=== PATIENT | female | born 1945 | race African-American/Black ===

== ENCOUNTER 2021-12-17 08:38 | Inpatient (IN) | payer MEDICARE, MEDICAID ==
[~2021-12-17] VITALS: Ht 172.7 cm; Wt 103.4 kg
[2021-12-17] MEDS ORDERED: METHYLPREDNISOLONE SOD SUCC 125 MG/2 ML VIAL IV STA (09:10)
[2021-12-17] MEDS ORDERED: IPRATROPIUM BROMIDE (0.02%) 0.5MG/2.5ML NEB HHN STA (09:10)
[2021-12-17] MEDS ORDERED: MAGNESIUM 2 G PREMIX 50 ML IV ONE ×2 (09:15→10:30)
[2021-12-17] MEDS: ALBUTEROL (0.083%) 2.5MG/3ML NEB HHN SCH ×2 (09:53→11:54)
[2021-12-17] MEDS ORDERED: DOCUSATE SODIUM 100MG CAPSULE PO PRN (10:30)
[2021-12-17] MEDS ORDERED: ACETAMINOPHEN 325MG TABLET PO PRN ×2 (10:30)
[2021-12-17] MEDS ORDERED: IPRATROPIUM/ALBUTEROL 0.5-3(2.5)MG/3ML NEB HHN PRN (10:30)
[2021-12-17] MEDS ORDERED: MAGNESIUM/ALUMINUM HYDROXIDE/SIMETHICONE 30ML UDC PO PRN (10:30)
[2021-12-17 10:34] LABS: BASOPHILS % 0.6 % (0.0-2.0); EOSINOPHILS % 0.4 % (0.0-5.0); HEMATOCRIT. 38.9 % (36.0-48.0); HEMOGLOBIN. 12.7 g/dL (12.0-16.0); LYMPHOCYTES % 11.7 % (20.0-50.0); MEAN CORPUSCULAR HEMOGLOBIN 29.4 pg (28.0-32.0); MEAN CORPUSCULAR VOLUME 89.6 fL (81.0-99.0); MEAN PLATELET VOLUME 7.1 fl (7.4-10.4); MONOCYTES % 7.5 % (2.0-8.0); NEUTROPHILS % 79.8 % (40.0-76.0); PLATELET 287 x1000/uL (130-400); RED BLOOD CELL COUNT 4.34 mill/uL (4.2-5.4); RED CELL DISTRIBUTION WIDTH 14.6 % (11.6-14.6)
[2021-12-17 10:41] LABS: CHLORIDE 99 mEq/L (98-107)
[2021-12-17] MEDS ORDERED: ASPIRIN 81MG TABLET PO ONE (11:15)
[2021-12-17 12:30] LABS: BG BASE EXCESS 3.5 mmol/L (-2.0-2.0); BG CARBOXYHEMOGLOBIN 1.4 % (0.5-1.5); BG FRACTION INSPIRED OXYGEN 30; BG HCO3 ACT 32.9 mmol/L (22.0-26.0); BG METHEMOGLOBIN 0.2 % (0.0-1.5); BG OXYGEN SATURATION 93.9 % (92.0-98.5); BG OXYHEMOGLOBIN 92.4 % (94.0-97.0); BG PCO2 75.2 mmHg (35.0-45.0); BG PH 7.259 (7.350-7.450); BG PO2 70.5 mmHg (75.0-100.0); BG SAMPLE SITE LEFT RADIAL; BG TOTAL HEMOGLOBIN 13.4 g/dL (12.0-18.0); BG VENT MODE NASAL CANNULA
[2021-12-17] MEDS ORDERED: IPRATROPIUM BROMIDE (0.02%) 0.5MG/2.5ML NEB HHN PRN (14:00)
[2021-12-17] MEDS: LOSARTAN POTASSIUM 25 MG TABLET PO SCH (14:08)
[2021-12-17] MEDS: FUROSEMIDE 40MG/4ML VIAL IVP SCH (14:08)
[2021-12-17] MEDS ORDERED: ASPIRIN 81MG TABLET PO SCH (14:15)
[2021-12-17] MEDS: METHYLPREDNISOLONE SOD SUCC 40 MG/ML VIAL IV SCH ×2 (16:03→21:48)
[2021-12-17] MEDS: IPRATROPIUM BROMIDE (0.02%) 0.5MG/2.5ML NEB HHN SCH ×2 (17:01→21:10)
[2021-12-17 18:07] VITALS: BP 108/82
[2021-12-17 18:19] VITALS: BP 108/82
[2021-12-17] MEDS: DILTIAZEM HCL 60MG TABLET PO SCH (19:19)
[2021-12-17 20:00] VITALS: BP 148/70
[2021-12-17] MEDS: RIVAROXABAN 20 MG TABLET PO SCH (20:28)
[2021-12-17 22:00] VITALS: BP 155/84
[2021-12-17] MEDS: MORPHINE SULFATE 2 MG/ML CPJ (NOT FOR IM USE) IV PRN (23:22)
[2021-12-18] VITALS (12 sets, daily range): BP systolic 117–177; BP diastolic 61–99
[2021-12-18] MEDS: DILTIAZEM HCL 60MG TABLET PO SCH ×2 (00:22→05:30)
[2021-12-18] MEDS: IPRATROPIUM BROMIDE (0.02%) 0.5MG/2.5ML NEB HHN SCH ×6 (01:01→20:47)
[2021-12-18] MEDS: METHYLPREDNISOLONE SOD SUCC 40 MG/ML VIAL IV SCH ×3 (05:30→22:25)
[2021-12-18 08:21] LABS: BG BASE EXCESS 7.3 mmol/L (-2.0-2.0); BG CARBOXYHEMOGLOBIN 0.8 % (0.5-1.5); BG DEOXYHEMOGLOBIN 3.4 % (0.0-5.0); BG FRACTION INSPIRED OXYGEN 50; BG HCO3 ACT 38.1 mmol/L (22.0-26.0); BG METHEMOGLOBIN 0.2 % (0.0-1.5); BG OXYGEN SATURATION 96.6 % (92.0-98.5); BG OXYHEMOGLOBIN 95.6 % (94.0-97.0); BG PCO2 92.7 mmHg (35.0-45.0); BG PH 7.232 (7.350-7.450); BG PO2 92.9 mmHg (75.0-100.0); BG SAMPLE SITE RIGHT RADIAL; BG TOTAL RESPIRATORY RATE 36 b/min; BG VENT MODE MASK - BIPAP
[2021-12-18] MEDS: LOSARTAN POTASSIUM 25 MG TABLET PO SCH (08:33)
[2021-12-18] MEDS: FUROSEMIDE 40MG/4ML VIAL IVP SCH (08:33)
[2021-12-18 09:14] LABS: HEMOGLOBIN. 12.1 g/dL (12.0-16.0); LYMPHOCYTES % 10.1 % (20.0-50.0); MEAN CORPUSCULAR HEMOGLOBIN 28.5 pg (28.0-32.0); MEAN CORPUSCULAR VOLUME 89.5 fL (81.0-99.0); MEAN PLATELET VOLUME 7.3 fl (7.4-10.4); MONOCYTES % 4.8 % (2.0-8.0); NEUTROPHILS % 85.1 % (40.0-76.0); PLATELET 252 x1000/uL (130-400); RED BLOOD CELL COUNT 4.25 mill/uL (4.2-5.4); RED CELL DISTRIBUTION WIDTH 14.6 % (11.6-14.6)
[2021-12-18 09:20] LABS: CHLORIDE 98 mEq/L (98-107)
[2021-12-18 09:34] LABS: CREATINE KINASE 40 IU/L (26-192); HDL CHOLESTEROL 77 mg/dL (40-59); LDL CHOLESTEROL 86 mg/dL (5-100)
[2021-12-18] MEDS ORDERED: SODIUM POLYSTYRENE SULFONATE 15 G/60 ML BOT PO NR (10:15)
[2021-12-18] MEDS: DILTIAZEM HCL 90MG TABLET PO SCH ×3 (11:29→17:46)
[2021-12-18] MEDS ORDERED: SODIUM BICARBONATE 8.4% 10MEQ/10ML SYR IV NR (14:00)
[2021-12-18] MEDS ORDERED: LORAZEPAM 0.5MG TABLET PO PRN ×2 (15:15→15:30)
[2021-12-18] MEDS ORDERED: HYDR-4134 PO (15:40)
[2021-12-18] MEDS ORDERED: GABA-532 PO (15:54)
[2021-12-18] MEDS ORDERED: LOSA25TA26 PO (15:55)
[2021-12-18] MEDS ORDERED: METH-371 PO (15:56)
[2021-12-18] MEDS ORDERED: METO5TAB2 PO (15:57)
[2021-12-18] MEDS ORDERED: MELO-106 PO (15:57)
[2021-12-18] MEDS ORDERED: IPRA3AMP9 HHN (15:59)
[2021-12-18] MEDS ORDERED: HYDR-4005 PO (16:00)
[2021-12-18] MEDS ORDERED: SENN-257 PO (16:01)
[2021-12-18] MEDS ORDERED: ACET-2708 PO (16:02)
[2021-12-18] MEDS ORDERED: TOPUD PO (16:03)
[2021-12-18] MEDS ORDERED: ONDA4TAB50 PO (16:06)
[2021-12-18] MEDS ORDERED: CHOL400D7 PO (16:06)
[2021-12-18] MEDS ORDERED: MOM PO (16:08)
[2021-12-18] MEDS ORDERED: DOCU-138 PO (16:10)
[2021-12-18] MEDS ORDERED: CRAN250C PO (16:12)
[2021-12-18] MEDS ORDERED: MULT-1116 PO (16:13)
[2021-12-18] MEDS ORDERED: BUDE0.5A3 NEB (16:13)
[2021-12-18] MEDS ORDERED: POLY17PO3 PO (16:14)
[2021-12-18] MEDS ORDERED: DILT60TA35 PO (16:15)
[2021-12-18] MEDS ORDERED: FURO40TA5 PO (16:16)
[2021-12-18] MEDS ORDERED: FERR325T6 PO (16:16)
[2021-12-18] MEDS: RIVAROXABAN 20 MG TABLET PO SCH (16:35)
[2021-12-18] MEDS: DIAZEPAM 5 MG TABLET PO PRN (16:46)
[2021-12-18] MEDS ORDERED: DIAZEPAM 5 MG/ML 2ML CPJ IV ONE (18:00)
[2021-12-18] MEDS ORDERED: HYDRALAZINE 20MG/ML VIAL IV NR (18:00)
[2021-12-18] MEDS ORDERED: HALOPERIDOL LACTATE 5MG/ML VIAL IM PRN (19:30)
[2021-12-19] VITALS (12 sets, daily range): BP systolic 129–192; BP diastolic 64–97
[2021-12-19] MEDS: ONDANSETRON HCL 4MG/2ML INJ IV PRN ×2 (00:49→21:17)
[2021-12-19] MEDS: IPRATROPIUM BROMIDE (0.02%) 0.5MG/2.5ML NEB HHN SCH ×7 (02:12→23:57)
[2021-12-19] MEDS: HYDRALAZINE 20MG/ML VIAL IV PRN ×3 (03:24→17:32)
[2021-12-19] MEDS ORDERED: LIDOCAINE HCL/PF 1% 2ML VIAL ONE (05:00)
[2021-12-19] MEDS: METHYLPREDNISOLONE SOD SUCC 40 MG/ML VIAL IV SCH ×3 (05:13→21:17)
[2021-12-19] MEDS: HALOPERIDOL LACTATE 5MG/ML VIAL IM PRN ×2 (05:13→11:17)
[2021-12-19] MEDS: DILTIAZEM HCL 90MG TABLET PO SCH ×2 (06:04)
[2021-12-19] MEDS: DIAZEPAM 5 MG TABLET PO PRN (06:04)
[2021-12-19 06:55] LABS: HEMATOCRIT. 38.9 % (36.0-48.0); HEMOGLOBIN. 12.8 g/dL (12.0-16.0); MEAN CORPUSCULAR HEMOGLOBIN 29.3 pg (28.0-32.0); MEAN CORPUSCULAR VOLUME 89.2 fL (81.0-99.0); MEAN PLATELET VOLUME 7.6 fl (7.4-10.4); PLATELET 308 x1000/uL (130-400); RED BLOOD CELL COUNT 4.36 mill/uL (4.2-5.4); RED CELL DISTRIBUTION WIDTH 14.5 % (11.6-14.6)
[2021-12-19 06:58] LABS: CHLORIDE 95 mEq/L (98-107)
[2021-12-19 08:22] LABS: BG BASE EXCESS 10.6 mmol/L (-2.0-2.0); BG CARBOXYHEMOGLOBIN 1.2 % (0.5-1.5); BG DEOXYHEMOGLOBIN 1.3 % (0.0-5.0); BG HCO3 ACT 39.9 mmol/L (22.0-26.0); BG METHEMOGLOBIN 0.1 % (0.0-1.5); BG OXYGEN SATURATION 98.7 % (92.0-98.5); BG OXYHEMOGLOBIN 97.4 % (94.0-97.0); BG PCO2 79.4 mmHg (35.0-45.0); BG PH 7.319 (7.350-7.450); BG PO2 129.2 mmHg (75.0-100.0); BG SAMPLE SITE RIGHT RADIAL; BG TOTAL HEMOGLOBIN 13.1 g/dL (12.0-18.0); BG VENT MODE MASK - BIPAP
[2021-12-19] MEDS: LOSARTAN POTASSIUM 50 MG TABLET PO SCH (08:44)
[2021-12-19] MEDS: FUROSEMIDE 40MG/4ML VIAL IVP SCH (08:44)
[2021-12-19] MEDS ORDERED: DIGOXIN 125MCG TABLET PO NR (09:00)
[2021-12-19] MEDS: MORPHINE SULFATE 2 MG/ML CPJ (NOT FOR IM USE) IV PRN (10:59)
[2021-12-19] MEDS ORDERED: SODIUM BICARBONATE 8.4% 1 MEQ/ML 50ML SYR IV NR (11:30)
[2021-12-19] MEDS: DIAZEPAM 5 MG/ML 2ML CPJ IV SCH ×2 (11:58→17:33)
[2021-12-19] MEDS ORDERED: DILTIAZEM 125MG/125ML PMX 125 ML IV ONE (12:00)
[2021-12-19 14:21] LABS: PLATELET ESTIMATE NORMAL
[2021-12-19] MEDS: RIVAROXABAN 20 MG TABLET PO SCH (17:33)
[2021-12-19] MEDS: NYSTATIN POWDER 15GM TOP SCH (17:33)
[2021-12-19] MEDS ORDERED: DIGOXIN 500MCG/2ML AMP IV SCH (18:00)
[2021-12-19] MEDS ORDERED: DIGOXIN 125MCG TABLET PO SCH (18:00)
[2021-12-19] MEDS ORDERED: NALOXONE HCL 0.4MG/ML VIAL IV PRN (19:30)
[2021-12-19] MEDS: DILTIAZEM 125MG/125ML PMX 125 ML IV SCH (21:17)
[2021-12-20] VITALS (10 sets, daily range): BP systolic 115–183; BP diastolic 58–96
[2021-12-20] MEDS: DIAZEPAM 5 MG/ML 2ML CPJ IV SCH ×3 (00:11→12:00)
[2021-12-20] MEDS: HALOPERIDOL LACTATE 5MG/ML VIAL IM PRN ×2 (01:05→22:11)
[2021-12-20] MEDS: HYDRALAZINE 20MG/ML VIAL IV PRN (01:06)
[2021-12-20] MEDS: IPRATROPIUM BROMIDE (0.02%) 0.5MG/2.5ML NEB HHN SCH ×5 (04:31→20:52)
[2021-12-20] MEDS: MORPHINE SULFATE 2 MG/ML CPJ (NOT FOR IM USE) IV PRN (04:46)
[2021-12-20] MEDS: DILTIAZEM 125MG/125ML PMX 125 ML IV SCH (04:47)
[2021-12-20] MEDS: METHYLPREDNISOLONE SOD SUCC 40 MG/ML VIAL IV SCH ×3 (05:30→22:11)
[2021-12-20] MEDS: NYSTATIN POWDER 15GM TOP SCH ×2 (06:14→17:53)
[2021-12-20 06:59] LABS: HEMATOCRIT. 37.3 % (36.0-48.0); MEAN CORPUSCULAR HEMOGLOBIN 29.4 pg (28.0-32.0); MEAN CORPUSCULAR VOLUME 91.3 fL (81.0-99.0); MEAN PLATELET VOLUME 8.1 fl (7.4-10.4); PLATELET 212 x1000/uL (130-400); RED BLOOD CELL COUNT 4.09 mill/uL (4.2-5.4); RED CELL DISTRIBUTION WIDTH 14.3 % (11.6-14.6)
[2021-12-20 07:01] LABS: CHLORIDE 96 mEq/L (98-107)
[2021-12-20 08:03] LABS: BG BASE EXCESS 10.9 mmol/L (-2.0-2.0); BG CARBOXYHEMOGLOBIN 1.1 % (0.5-1.5); BG DEOXYHEMOGLOBIN 5.4 % (0.0-5.0); BG FRACTION INSPIRED OXYGEN 30; BG HCO3 ACT 38.1 mmol/L (22.0-26.0); BG METHEMOGLOBIN 0.1 % (0.0-1.5); BG OXYGEN SATURATION 94.5 % (92.0-98.5); BG OXYHEMOGLOBIN 93.4 % (94.0-97.0); BG PO2 71.2 mmHg (75.0-100.0); BG SAMPLE SITE RIGHT RADIAL; BG TOTAL HEMOGLOBIN 12.9 g/dL (12.0-18.0); BG VENT MODE MASK - BIPAP
[2021-12-20] MEDS: LOSARTAN POTASSIUM 50 MG TABLET PO SCH (08:56)
[2021-12-20] MEDS: FUROSEMIDE 40MG/4ML VIAL IVP SCH (08:56)
[2021-12-20 10:52] LABS: PLATELET ESTIMATE NORMAL
[2021-12-20] MEDS ORDERED: DILTIAZEM 125MG/125ML PMX 125 ML IV SCH ×2 (11:14→11:30)
[2021-12-20] MEDS ORDERED: DILTIAZEM HCL 60MG TABLET PO SCH (12:00)
[2021-12-20] MEDS ORDERED: DILTIAZEM HCL 125 MG in DEXTROSE 5% WATER 125 ML IV SCH (12:30)
[2021-12-20] MEDS: METOPROLOL TARTRATE 100MG TABLET PO SCH ×2 (16:19→22:11)
[2021-12-20] MEDS: RIVAROXABAN 20 MG TABLET PO SCH (16:19)
[2021-12-20] MEDS: DILTIAZEM HCL 90MG TABLET PO SCH ×2 (17:53→23:46)
[2021-12-20] MEDS: DIAZEPAM 5 MG TABLET PO SCH ×2 (17:53→23:45)
[2021-12-21] VITALS (13 sets, daily range): BP systolic 121–159; BP diastolic 61–101
[2021-12-21] MEDS: IPRATROPIUM BROMIDE (0.02%) 0.5MG/2.5ML NEB HHN SCH ×6 (00:37→20:12)
[2021-12-21] MEDS: DIAZEPAM 5 MG TABLET PO SCH ×3 (06:13→17:26)
[2021-12-21] MEDS: NYSTATIN POWDER 15GM TOP SCH ×2 (06:13→17:26)
[2021-12-21] MEDS: DILTIAZEM HCL 90MG TABLET PO SCH ×3 (06:13→17:26)
[2021-12-21] MEDS: METHYLPREDNISOLONE SOD SUCC 40 MG/ML VIAL IV SCH ×3 (06:13→21:59)
[2021-12-21 07:13] LABS: HEMATOCRIT. 36.5 % (36.0-48.0); HEMOGLOBIN. 11.7 g/dL (12.0-16.0); MEAN CORPUSCULAR HEMOGLOBIN 29.2 pg (28.0-32.0); MEAN PLATELET VOLUME 7.5 fl (7.4-10.4); PLATELET 241 x1000/uL (130-400); RED BLOOD CELL COUNT 4.01 mill/uL (4.2-5.4); RED CELL DISTRIBUTION WIDTH 14.4 % (11.6-14.6)
[2021-12-21 07:14] LABS: CHLORIDE 90 mEq/L (98-107)
[2021-12-21] MEDS: FUROSEMIDE 40MG/4ML VIAL IVP SCH (08:46)
[2021-12-21] MEDS: LOSARTAN POTASSIUM 50 MG TABLET PO SCH (08:46)
[2021-12-21] MEDS: METOPROLOL TARTRATE 100MG TABLET PO SCH ×2 (08:46→22:00)
[2021-12-21] MEDS ORDERED: DILTIAZEM 125MG/125ML PMX 125 ML IV SCH (12:00)
[2021-12-21 12:44] LABS: PLATELET ESTIMATE NORMAL
[2021-12-21] MEDS: RIVAROXABAN 20 MG TABLET PO SCH (17:26)
[2021-12-21] MEDS: DIAZEPAM 5 MG TABLET PO PRN (20:13)
[2021-12-21] MEDS: MORPHINE SULFATE 2 MG/ML CPJ (NOT FOR IM USE) IV PRN (21:03)
[2021-12-22] VITALS (15 sets, daily range): BP systolic 133–158; BP diastolic 57–103
[2021-12-22] MEDS: IPRATROPIUM BROMIDE (0.02%) 0.5MG/2.5ML NEB HHN SCH ×6 (00:09→20:26)
[2021-12-22] MEDS: DILTIAZEM HCL 90MG TABLET PO SCH ×4 (00:21→17:15)
[2021-12-22] MEDS: DIAZEPAM 5 MG TABLET PO SCH ×4 (00:22→21:00)
[2021-12-22] MEDS: METHYLPREDNISOLONE SOD SUCC 40 MG/ML VIAL IV SCH ×3 (06:16→21:20)
[2021-12-22] MEDS: NYSTATIN POWDER 15GM TOP SCH ×2 (06:17→17:10)
[2021-12-22 06:38] LABS: HEMATOCRIT. 40.2 % (36.0-48.0); HEMOGLOBIN. 12.9 g/dL (12.0-16.0); MEAN CORPUSCULAR HEMOGLOBIN 28.9 pg (28.0-32.0); MEAN PLATELET VOLUME 7.7 fl (7.4-10.4); PLATELET 264 x1000/uL (130-400); RED BLOOD CELL COUNT 4.47 mill/uL (4.2-5.4); RED CELL DISTRIBUTION WIDTH 14.2 % (11.6-14.6)
[2021-12-22 06:53] LABS: CHLORIDE 90 mEq/L (98-107)
[2021-12-22] MEDS: LOSARTAN POTASSIUM 50 MG TABLET PO SCH (08:56)
[2021-12-22] MEDS: FUROSEMIDE 40MG/4ML VIAL IVP SCH (08:56)
[2021-12-22] MEDS: METOPROLOL TARTRATE 100MG TABLET PO SCH (08:57)
[2021-12-22] MEDS: DIAZEPAM 5 MG TABLET PO PRN (08:58)
[2021-12-22 09:13] LABS: NUCLEATED RED BLOOD CELLS 1 /100 WBC; PLATELET ESTIMATE NORMAL
[2021-12-22] MEDS: RIVAROXABAN 20 MG TABLET PO SCH (16:57)
[2021-12-22] MEDS ORDERED: DIAZEPAM 5 MG TABLET PO SCH (17:00)
[2021-12-22] MEDS: METOPROLOL TARTRATE 50MG TABLET PO SCH (21:00)
[2021-12-23] VITALS (12 sets, daily range): BP systolic 131–168; BP diastolic 58–91
[2021-12-23] MEDS: DIAZEPAM 5 MG TABLET PO SCH ×5 (00:20→21:25)
[2021-12-23] MEDS: IPRATROPIUM BROMIDE (0.02%) 0.5MG/2.5ML NEB HHN SCH ×6 (00:44→20:35)
[2021-12-23] MEDS: METHYLPREDNISOLONE SOD SUCC 40 MG/ML VIAL IV SCH ×3 (05:48→21:26)
[2021-12-23] MEDS: DILTIAZEM HCL 90MG TABLET PO SCH ×5 (05:48→23:36)
[2021-12-23] MEDS: NYSTATIN POWDER 15GM TOP SCH ×2 (05:49→17:19)
[2021-12-23 06:43] LABS: HEMATOCRIT. 41.6 % (36.0-48.0); HEMOGLOBIN. 13.2 g/dL (12.0-16.0); MEAN CORPUSCULAR HEMOGLOBIN 28.8 pg (28.0-32.0); MEAN CORPUSCULAR VOLUME 90.6 fL (81.0-99.0); MEAN PLATELET VOLUME 7.6 fl (7.4-10.4); PLATELET 229 x1000/uL (130-400); RED BLOOD CELL COUNT 4.59 mill/uL (4.2-5.4); RED CELL DISTRIBUTION WIDTH 13.9 % (11.6-14.6)
[2021-12-23 07:35] LABS: CHLORIDE 89 mEq/L (98-107)
[2021-12-23] MEDS: FUROSEMIDE 40MG/4ML VIAL IVP SCH (10:04)
[2021-12-23] MEDS: METOPROLOL TARTRATE 50MG TABLET PO SCH ×2 (10:04→21:26)
[2021-12-23] MEDS: LOSARTAN POTASSIUM 50 MG TABLET PO SCH (10:04)
[2021-12-23 15:44] LABS: PLATELET ESTIMATE NORMAL
[2021-12-23] MEDS: RIVAROXABAN 20 MG TABLET PO SCH (17:17)
[2021-12-23] MEDS: HYDRALAZINE 20MG/ML VIAL IV PRN (17:18)
[2021-12-24] VITALS (12 sets, daily range): BP systolic 124–151; BP diastolic 57–86
[2021-12-24] MEDS: IPRATROPIUM BROMIDE (0.02%) 0.5MG/2.5ML NEB HHN SCH ×6 (00:24→20:16)
[2021-12-24] MEDS: METHYLPREDNISOLONE SOD SUCC 40 MG/ML VIAL IV SCH ×3 (05:33→21:09)
[2021-12-24] MEDS: DILTIAZEM HCL 90MG TABLET PO SCH ×4 (05:34→23:56)
[2021-12-24] MEDS: NYSTATIN POWDER 15GM TOP SCH ×2 (05:35→18:18)
[2021-12-24] MEDS: DIAZEPAM 5 MG TABLET PO SCH ×4 (09:00→21:00)
[2021-12-24] MEDS: FUROSEMIDE 40MG/4ML VIAL IVP SCH (10:40)
[2021-12-24] MEDS: METOPROLOL TARTRATE 50MG TABLET PO SCH ×2 (10:41→21:09)
[2021-12-24] MEDS: LOSARTAN POTASSIUM 50 MG TABLET PO SCH (10:41)
[2021-12-24] MEDS: RIVAROXABAN 20 MG TABLET PO SCH (18:18)
[2021-12-25] VITALS (12 sets, daily range): BP systolic 127–171; BP diastolic 58–89
[2021-12-25] MEDS: IPRATROPIUM BROMIDE (0.02%) 0.5MG/2.5ML NEB HHN SCH ×6 (00:10→20:24)
[2021-12-25] MEDS: NYSTATIN POWDER 15GM TOP SCH ×2 (05:43→16:57)
[2021-12-25] MEDS: METHYLPREDNISOLONE SOD SUCC 40 MG/ML VIAL IV SCH ×3 (05:43→22:00)
[2021-12-25] MEDS: DILTIAZEM HCL 90MG TABLET PO SCH ×3 (05:43→16:57)
[2021-12-25] MEDS: DIAZEPAM 5 MG TABLET PO SCH ×4 (09:24→22:16)
[2021-12-25] MEDS: METOPROLOL TARTRATE 50MG TABLET PO SCH ×2 (09:25→22:09)
[2021-12-25] MEDS: LOSARTAN POTASSIUM 50 MG TABLET PO SCH (09:25)
[2021-12-25] MEDS: FUROSEMIDE 40MG/4ML VIAL IVP SCH (09:42)
[2021-12-25] MEDS: RIVAROXABAN 20 MG TABLET PO SCH (16:55)
[2021-12-26] VITALS (12 sets, daily range): BP systolic 99–148; BP diastolic 57–81
[2021-12-26] MEDS: DILTIAZEM HCL 90MG TABLET PO SCH ×5 (00:08→23:43)
[2021-12-26] MEDS: IPRATROPIUM BROMIDE (0.02%) 0.5MG/2.5ML NEB HHN SCH ×6 (00:15→20:00)
[2021-12-26] MEDS: NYSTATIN POWDER 15GM TOP SCH ×2 (06:17→18:31)
[2021-12-26 07:19] LABS: HEMATOCRIT. 39.7 % (36.0-48.0); HEMOGLOBIN. 12.8 g/dL (12.0-16.0); MEAN CORPUSCULAR HEMOGLOBIN 29.1 pg (28.0-32.0); MEAN CORPUSCULAR VOLUME 90.1 fL (81.0-99.0); MEAN PLATELET VOLUME 8.1 fl (7.4-10.4); PLATELET 236 x1000/uL (130-400)
[2021-12-26 07:55] LABS: CHLORIDE 88 mEq/L (98-107)
[2021-12-26] MEDS: FUROSEMIDE 40MG/4ML VIAL IVP SCH ×2 (09:00→10:36)
[2021-12-26] MEDS: DIAZEPAM 5 MG TABLET PO SCH ×4 (10:37→20:47)
[2021-12-26] MEDS: METOPROLOL TARTRATE 50MG TABLET PO SCH ×2 (10:37→20:47)
[2021-12-26] MEDS: LOSARTAN POTASSIUM 50 MG TABLET PO SCH (10:37)
[2021-12-26] MEDS: METHYLPREDNISOLONE SOD SUCC 40 MG/ML VIAL IV SCH ×2 (14:00→22:00)
[2021-12-26 16:48] LABS: PLATELET ESTIMATE NORMAL
[2021-12-26] MEDS: RIVAROXABAN 20 MG TABLET PO SCH (18:30)
[2021-12-27] VITALS (12 sets, daily range): BP systolic 115–153; BP diastolic 55–120
[2021-12-27] MEDS: IPRATROPIUM BROMIDE (0.02%) 0.5MG/2.5ML NEB HHN SCH ×6 (00:20→20:50)
[2021-12-27 04:09] LABS: CLARITY URINE CLOUDY (CLEAR); COLOR URINE YELLOW (YELLOW); KETONES URINE NEGATIVE (NEGATIVE); LEUKOCYTE ESTERASE URINE 3+ (NEGATIVE); NITRITE URINE NEGATIVE (NEGATIVE); OCCULT BLOOD URINE 2+ (NEGATIVE); PH URINE 8.5 (4.5-8.0); PROTEIN URINE 1+ (NEGATIVE)
[2021-12-27] MEDS: NYSTATIN POWDER 15GM TOP SCH ×2 (04:38→17:56)
[2021-12-27] MEDS: DILTIAZEM HCL 90MG TABLET PO SCH ×3 (05:09→17:48)
[2021-12-27] MEDS: METHYLPREDNISOLONE SOD SUCC 40 MG/ML VIAL IV SCH (05:10)
[2021-12-27 06:30] LABS: HEMOGLOBIN. 11.9 g/dL (12.0-16.0); MEAN CORPUSCULAR HEMOGLOBIN 29.1 pg (28.0-32.0); MEAN CORPUSCULAR VOLUME 90.5 fL (81.0-99.0); MEAN PLATELET VOLUME 7.9 fl (7.4-10.4); PLATELET 191 x1000/uL (130-400); RED BLOOD CELL COUNT 4.09 mill/uL (4.2-5.4); RED CELL DISTRIBUTION WIDTH 13.8 % (11.6-14.6)
[2021-12-27 06:46] LABS: CHLORIDE 91 mEq/L (98-107)
[2021-12-27] MEDS: LOSARTAN POTASSIUM 50 MG TABLET PO SCH (08:59)
[2021-12-27] MEDS: METOPROLOL TARTRATE 50MG TABLET PO SCH ×2 (09:00→20:33)
[2021-12-27] MEDS: DIAZEPAM 5 MG TABLET PO SCH ×4 (09:00→22:41)
[2021-12-27] MEDS: BUDESONIDE 0.5MG/2ML NEB HHN SCH ×2 (12:49→20:50)
[2021-12-27] MEDS: FUROSEMIDE 40MG TABLET PO SCH (13:05)
[2021-12-27] MEDS: PREDNISONE 20MG TABLET PO SCH (17:47)
[2021-12-27] MEDS: RIVAROXABAN 20 MG TABLET PO SCH (17:48)
[2021-12-27] MEDS: HALOPERIDOL LACTATE 5MG/ML VIAL IM PRN (20:06)
[2021-12-27] MEDS: CEFTRIAXONE 1,000 MG in DEXTROSE 5% WATER 50 ML IV SCH (22:40)
[2021-12-27 22:50] LABS: PLATELET ESTIMATE NORMAL
[2021-12-28] VITALS (13 sets, daily range): BP systolic 95–150; BP diastolic 53–89
[2021-12-28] MEDS: IPRATROPIUM BROMIDE (0.02%) 0.5MG/2.5ML NEB HHN SCH ×6 (00:23→20:24)
[2021-12-28] MEDS: DILTIAZEM HCL 90MG TABLET PO SCH ×5 (05:57→23:35)
[2021-12-28] MEDS: NYSTATIN POWDER 15GM TOP SCH ×2 (05:58→17:40)
[2021-12-28] MEDS: BUDESONIDE 0.5MG/2ML NEB HHN SCH ×2 (08:18→20:24)
[2021-12-28] MEDS: PREDNISONE 20MG TABLET PO SCH ×2 (08:56→17:30)
[2021-12-28] MEDS: FUROSEMIDE 40MG TABLET PO SCH (08:56)
[2021-12-28] MEDS: DIAZEPAM 5 MG TABLET PO SCH ×4 (08:56→20:58)
[2021-12-28] MEDS: METOPROLOL TARTRATE 50MG TABLET PO SCH ×2 (08:57→20:10)
[2021-12-28] MEDS: LOSARTAN POTASSIUM 50 MG TABLET PO SCH (08:57)
[2021-12-28] MEDS: RIVAROXABAN 20 MG TABLET PO SCH (17:30)
[2021-12-28] MEDS: CEFTRIAXONE 1,000 MG in DEXTROSE 5% WATER 50 ML IV SCH (19:58)
[2021-12-28] MEDS: HALOPERIDOL LACTATE 5MG/ML VIAL IM PRN (20:00)
[2021-12-29] VITALS (12 sets, daily range): BP systolic 92–155; BP diastolic 46–118
[2021-12-29] MEDS: IPRATROPIUM BROMIDE (0.02%) 0.5MG/2.5ML NEB HHN SCH ×7 (00:59→23:57)
[2021-12-29] MEDS: DILTIAZEM HCL 90MG TABLET PO SCH ×3 (05:09→17:14)
[2021-12-29] MEDS: NYSTATIN POWDER 15GM TOP SCH ×2 (05:10→17:14)
[2021-12-29 06:38] LABS: CHLORIDE 89 mEq/L (98-107)
[2021-12-29 07:05] LABS: HEMATOCRIT. 36.9 % (36.0-48.0); HEMOGLOBIN. 11.7 g/dL (12.0-16.0); MEAN CORPUSCULAR HEMOGLOBIN 28.8 pg (28.0-32.0); MEAN CORPUSCULAR VOLUME 90.8 fL (81.0-99.0); MEAN PLATELET VOLUME 8.5 fl (7.4-10.4); PLATELET 184 x1000/uL (130-400); RED BLOOD CELL COUNT 4.07 mill/uL (4.2-5.4)
[2021-12-29] MEDS: DIAZEPAM 5 MG TABLET PO SCH ×4 (08:42→20:10)
[2021-12-29] MEDS: METOPROLOL TARTRATE 50MG TABLET PO SCH ×2 (08:43→20:12)
[2021-12-29] MEDS: PREDNISONE 20MG TABLET PO SCH (08:43)
[2021-12-29] MEDS: LOSARTAN POTASSIUM 50 MG TABLET PO SCH (08:43)
[2021-12-29] MEDS: FUROSEMIDE 40MG TABLET PO SCH (08:43)
[2021-12-29] MEDS: BUDESONIDE 0.5MG/2ML NEB HHN SCH ×2 (09:07→20:10)
[2021-12-29 13:38] LABS: BG BASE EXCESS 18.9 mmol/L (-2.0-2.0); BG CARBOXYHEMOGLOBIN 0.9 % (0.5-1.5); BG DEOXYHEMOGLOBIN 2.1 % (0.0-5.0); BG FRACTION INSPIRED OXYGEN 40; BG HCO3 ACT 47.5 mmol/L (22.0-26.0); BG METHEMOGLOBIN 0.3 % (0.0-1.5); BG OXYGEN SATURATION 97.9 % (92.0-98.5); BG OXYHEMOGLOBIN 96.7 % (94.0-97.0); BG PCO2 75.5 mmHg (35.0-45.0); BG PH 7.417 (7.350-7.450); BG PO2 100.9 mmHg (75.0-100.0); BG SAMPLE SITE RIGHT RADIAL; BG TOTAL HEMOGLOBIN 13.1 g/dL (12.0-18.0); BG VENT MODE MASK - BIPAP
[2021-12-29] MEDS: METHYLPREDNISOLONE SOD SUCC 40 MG/ML VIAL IV SCH ×2 (14:36→21:12)
[2021-12-29] MEDS: RIVAROXABAN 20 MG TABLET PO SCH (17:14)
[2021-12-29] MEDS: CEFTRIAXONE 1,000 MG in DEXTROSE 5% WATER 50 ML IV SCH (20:46)
[2021-12-29 23:31] LABS: PLATELET ESTIMATE NORMAL
[2021-12-30] VITALS (12 sets, daily range): BP systolic 116–150; BP diastolic 65–130
[2021-12-30] MEDS: DILTIAZEM HCL 90MG TABLET PO SCH ×3 (05:39→18:52)
[2021-12-30] MEDS: METHYLPREDNISOLONE SOD SUCC 40 MG/ML VIAL IV SCH ×3 (05:39→21:32)
[2021-12-30] MEDS: NYSTATIN POWDER 15GM TOP SCH ×2 (05:40→18:52)
[2021-12-30] MEDS: METOPROLOL TARTRATE 50MG TABLET PO SCH ×2 (09:00→21:32)
[2021-12-30] MEDS: LOSARTAN POTASSIUM 50 MG TABLET PO SCH (09:00)
[2021-12-30] MEDS: BUDESONIDE 0.5MG/2ML NEB HHN SCH (09:46)
[2021-12-30] MEDS: IPRATROPIUM BROMIDE (0.02%) 0.5MG/2.5ML NEB HHN SCH ×4 (09:46→20:25)
[2021-12-30] MEDS: DIAZEPAM 5 MG TABLET PO SCH ×4 (09:49→21:32)
[2021-12-30] MEDS: FUROSEMIDE 40MG TABLET PO SCH (09:49)
[2021-12-30 10:13] LABS: HEMATOCRIT. 38.8 % (36.0-48.0); HEMOGLOBIN. 12.2 g/dL (12.0-16.0); MEAN CORPUSCULAR HEMOGLOBIN 28.5 pg (28.0-32.0); MEAN CORPUSCULAR VOLUME 90.8 fL (81.0-99.0); MEAN PLATELET VOLUME 8.3 fl (7.4-10.4); PLATELET 209 x1000/uL (130-400); RED BLOOD CELL COUNT 4.27 mill/uL (4.2-5.4); RED CELL DISTRIBUTION WIDTH 13.8 % (11.6-14.6)
[2021-12-30 10:19] LABS: CHLORIDE 89 mEq/L (98-107)
[2021-12-30 13:02] LABS: NUCLEATED RED BLOOD CELLS 1 /100 WBC; PLATELET ESTIMATE NORMAL
[2021-12-30] MEDS: THEOPHYLLINE ANHYDROUS 80 MG/15 ML 120ML PO SCH ×2 (14:00→21:32)
[2021-12-30] MEDS: RIVAROXABAN 20 MG TABLET PO SCH (18:51)
[2021-12-30] MEDS: CEFTRIAXONE 1,000 MG in DEXTROSE 5% WATER 50 ML IV SCH (20:24)
[2021-12-31] VITALS (9 sets, daily range): BP systolic 111–148; BP diastolic 61–84
[2021-12-31] MEDS: DILTIAZEM HCL 90MG TABLET PO SCH ×3 (00:58→12:03)
[2021-12-31] MEDS: IPRATROPIUM BROMIDE (0.02%) 0.5MG/2.5ML NEB HHN SCH ×4 (01:34→12:14)
[2021-12-31] MEDS: NYSTATIN POWDER 15GM TOP SCH (06:05)
[2021-12-31] MEDS: THEOPHYLLINE ANHYDROUS 80 MG/15 ML 120ML PO SCH (06:05)
[2021-12-31] MEDS: METHYLPREDNISOLONE SOD SUCC 40 MG/ML VIAL IV SCH (06:06)
[2021-12-31] MEDS: LOSARTAN POTASSIUM 50 MG TABLET PO SCH (08:03)
[2021-12-31] MEDS: METOPROLOL TARTRATE 50MG TABLET PO SCH (08:18)
[2021-12-31] MEDS: DIAZEPAM 5 MG TABLET PO SCH ×2 (08:18→12:06)
[2021-12-31] MEDS: FUROSEMIDE 40MG TABLET PO SCH (08:18)
[2021-12-31] MEDS ORDERED: SODIUM BICARBONATE 50 MEQ in SODIUM CHLORIDE 0.45% 1,000 ML IV ONE (10:15)
[2021-12-31] MEDS ORDERED: SODIUM BICARBONATE 8.4% 1 MEQ/ML 50ML SYR IV NR (12:00)
== END 2021-12-31 14:20 | DRG 190 ==
LOC: ER 09:16 → 5EST 11:50 → EDBEDREQTM 11:51 → EDBEDREQSVC 11:51 → EDBEDREQ 11:51 → ENRESERV 14:58
PROVIDERS: ADMIT Family Medicine Adult Medicine; ATTEND Family Medicine Adult Medicine
PROC: 5A0935A Assistance with Respiratory Ventilation, Less than 24 Consecutive Hours, High Flow/Velocity Cannula (ICD-10-PCS; 2021-12-17)
PROC: 5A09357 Assistance with Respiratory Ventilation, Less than 24 Consecutive Hours, Continuous Positive Airway Pressure (ICD-10-PCS; 2021-12-20)
PROC: 5A09357 Assistance with Respiratory Ventilation, Less than 24 Consecutive Hours, Continuous Positive Airway Pressure (ICD-10-PCS; 2021-12-21)
PROC: 5A09357 Assistance with Respiratory Ventilation, Less than 24 Consecutive Hours, Continuous Positive Airway Pressure (ICD-10-PCS; 2021-12-22)
PROC: 5A09357 Assistance with Respiratory Ventilation, Less than 24 Consecutive Hours, Continuous Positive Airway Pressure (ICD-10-PCS; 2021-12-23)
PROC: 5A09357 Assistance with Respiratory Ventilation, Less than 24 Consecutive Hours, Continuous Positive Airway Pressure (ICD-10-PCS; 2021-12-24)
PROC: 5A09357 Assistance with Respiratory Ventilation, Less than 24 Consecutive Hours, Continuous Positive Airway Pressure (ICD-10-PCS; 2021-12-25)
PROC: 5A09357 Assistance with Respiratory Ventilation, Less than 24 Consecutive Hours, Continuous Positive Airway Pressure (ICD-10-PCS; 2021-12-26)
PROC: 5A09457 Assistance with Respiratory Ventilation, 24-96 Consecutive Hours, Continuous Positive Airway Pressure (ICD-10-PCS; principal; 2021-12-27)
PROC: 5A09357 Assistance with Respiratory Ventilation, Less than 24 Consecutive Hours, Continuous Positive Airway Pressure (ICD-10-PCS; 2021-12-27)
PROC: 5A09357 Assistance with Respiratory Ventilation, Less than 24 Consecutive Hours, Continuous Positive Airway Pressure (ICD-10-PCS; 2021-12-28)
PROC: 5A09357 Assistance with Respiratory Ventilation, Less than 24 Consecutive Hours, Continuous Positive Airway Pressure (ICD-10-PCS; 2021-12-29)
PROC: 5A09357 Assistance with Respiratory Ventilation, Less than 24 Consecutive Hours, Continuous Positive Airway Pressure (ICD-10-PCS; 2021-12-30)
PROC: 5A09357 Assistance with Respiratory Ventilation, Less than 24 Consecutive Hours, Continuous Positive Airway Pressure (ICD-10-PCS; 2021-12-31)
DX: I21.4 Non-ST elevation (NSTEMI) myocardial infarction (principal); J96.00 Acute respiratory failure, unspecified whether with hypoxia or hypercapnia; E46 Unspecified protein-calorie malnutrition; E87.2 Acidosis; I27.20 Pulmonary hypertension, unspecified; I42.9 Cardiomyopathy, unspecified; I48.20 Chronic atrial fibrillation, unspecified; E87.4 Mixed disorder of acid-base balance; I50.30 Unspecified diastolic (congestive) heart failure; I11.0 Hypertensive heart disease with heart failure; N39.0 Urinary tract infection, site not specified; J43.9 Emphysema, unspecified; K21.9 Gastro-esophageal reflux disease without esophagitis; F41.9 Anxiety disorder, unspecified; E11.9 Type 2 diabetes mellitus without complications; E78.5 Hyperlipidemia, unspecified; I25.10 Atherosclerotic heart disease of native coronary artery without angina pectoris; E05.90 Thyrotoxicosis, unspecified without thyrotoxic crisis or storm; I07.1 Rheumatic tricuspid insufficiency; F17.200 Nicotine dependence, unspecified, uncomplicated; Z88.0 Allergy status to penicillin; Z99.81 Dependence on supplemental oxygen; Z86.73 Personal history of transient ischemic attack (TIA), and cerebral infarction without residual deficits; Z68.34 Body mass index [BMI] 34.0-34.9, adult; Z88.8 Allergy status to other drugs, medicaments and biological substances; Z91.19 Patient's noncompliance with other medical treatment and regimen
CPT/HCPCS: 36415; 36600; 71045; 80048; 80053; 80061; 80162; 81003; 82140; 82375; 82550; 82805; 82962; 83605; 83735; 83880; 84443; 84484; 85025; 87077; 87186; 87804; 93005; 93306; 93970; 94640; 94660; 99291; J0360; J0696; J1160; J1630; J1940; J2270; J2405; J2920; J2930; J3475; J3490; J7060; J7512; J7626